=== PATIENT | female | born 1995 | race Caucasian/White ===

== ENCOUNTER 2022-10-28 15:33 | Emergency (ER) | payer MEDICAID ==
[~2022-10-28] VITALS: Ht 170.2 cm; Wt 79.5 kg
[2022-10-28 15:41] VITALS: TEMP 98.3
[2022-10-28] MEDS ORDERED: DOXYLAMINE SUCCINATE 25 MG TABLET PO ONE (16:00)
[2022-10-28] MEDS ORDERED: SODIUM CHLORIDE 0.9% 1,000 ML IV ONE (16:00)
[2022-10-28] MEDS ORDERED: PYRIDOXINE HCL 50 MG TABLET PO ONE (16:00)
[2022-10-28 16:15] LABS: BASOPHILS % (AUTO) 0.9 % (0.0-2.0); EOSINOPHILS % (AUTO) 1.3 % (1.0-6.0); HEMATOCRIT 37.4 % (36-46); HEMOGLOBIN 12.5 g/dL (12.0-16.0); LYMPHOCYTES # (AUTO) 1.2 K/uL (1.0-4.8); MEAN CORPUSCULAR HEMOGLOBIN 31.5 pg (26.0-34.0); MEAN CORPUSCULAR HGB CONC 33.5 G/dL (31.0-37.0); MEAN CORPUSCULAR VOLUME 94 fL (80-100); MONOCYTES # (AUTO) 0.5 K/uL (0.1-1.0); MONOCYTES % (AUTO) 7.3 % (2.0-9.0); NEUTROPHILS # (AUTO) 4.7 K/uL (1.8-7.7); NEUTROPHILS % (AUTO) 72.5 % (40.0-70.0); PLATELET COUNT (AUTO) 198 K/uL (150-450); RED BLOOD CELL COUNT(AUTO) 3.97 MIL/uL (4.00-5.20); RED CELL DISTRIBUTION WIDTH 13.1 % (11.5-14.5); WHITE BLOOD COUNT (AUTO) 6.5 K/uL (4.5-11.0)
[2022-10-28 16:27] LABS: ANION GAP 10 mmol/L (8-16); CALCIUM, TOTAL 8.1 mg/dL (8.8-10.5); CARBON DIOXIDE 23 mmol/L (22-29); CHLORIDE 103 mmol/L (98-107); CREATININE 0.36 mg/dL (0.60-1.30); GLOMERULAR FILTR. RATE CALC > 60 mL/min (>60); GLUCOSE,RANDOM 71 mg/dL (70-110); POTASSIUM 3.6 mmol/L (3.5-5.1); SODIUM SERUM 136 mmol/L (136-145); UREA NITROGEN, BLOOD 7 mg/dL (7-18)
[2022-10-28 16:31] LABS: ALANINE AMINOTRANSFERASE 15 U/L (12-78); ALBUMIN 2.7 g/dL (3.4-5.0); ALKALINE PHOSPHATASE 55 U/L (46-116); ASPARTATE AMINOTRANSFERASE 12 U/L (15-37); BILIRUBIN,TOTAL 0.5 mg/dL (0.1-1.0); LIPASE 20 U/L (16-77); TOTAL PROTEIN, SERUM 5.8 g/dL (6.4-8.2)
[2022-10-28 17:10] LABS: HCG,QUANTITATIVE 11402 mIU/mL (0-6)
[2022-10-28 18:15] LABS: APPEARANCE,URINE CLEAR (CLEAR); BILIRUBIN,URINE NEGATIVE (NEGATIVE); COLOR,URINE LIGHT YELLOW (YELLOW); GLUCOSE, URINE (UA) NEGATIVE (NEGATIVE); KETONES,URINE 80-100 mg/dL (NEGATIVE); LEUKOCYTE ESTERASE ,URINE NEGATIVE (NEGATIVE); NITRATE,URINE NEGATIVE (NEGATIVE); OCCULT BLOOD,URINE NEGATIVE (NEGATIVE); PH,URINE 6.5 (5.0-8.0); PROTEIN,URINE TRACE mg/dL (NEGATIVE); UROBILINOGEN,URINE <=1.0 mg/dL (<=1.0)
[2022-10-28] MEDS ORDERED: DOXY1TAB3 PO (18:22)
[2022-10-28 18:40] VITALS: BP 104/66; PULSE 87; RESP 18
== END 2022-10-28 18:55 | disposition home or self-care (01) ==
LOC: EMS 15:35
DX: O21.9 Vomiting of pregnancy, unspecified (principal); Z3A.25 25 weeks gestation of pregnancy
CPT/HCPCS: 80053; 81003; 83690; 84702; 85025; 96360; 99283; 36415-L1; 36415-TC

== ENCOUNTER 2023-07-15 09:34 | Emergency (ER) | payer MEDICAID ==
[~2023-07-15] VITALS: Ht 170.2 cm; Wt 91.0 kg
[~2023-07-15 09:34] MED LIST: DOXY1TAB3 PO
[2023-07-15 09:35] VITALS: BP 116/69; PULSE 87; RESP 16; TEMP 98.2
[2023-07-15 13:56] LABS: COVID AG,FIA SOURCE NASAL SWAB
[2023-07-15 14:18] LABS: SARS-COV2 (COVID) ANTIGEN,FIA Negative (Negative)
[2023-07-15 14:21] LABS: INFLUENZA TYPE A NEGATIVE FOR TYPE A (NEGATIVE); INFLUENZA TYPE B NEGATIVE FOR TYPE B (NEGATIVE)
[2023-07-15] MEDS ORDERED: AMOX500C2 PO (15:11)
== END 2023-07-15 16:00 | disposition home or self-care (01) ==
LOC: EMS 09:34
DX: J32.9 Chronic sinusitis, unspecified (principal); Z20.822 Contact with and (suspected) exposure to COVID-19
CPT/HCPCS: 71045; 87804; 99284

== ENCOUNTER 2023-10-19 09:43 | Inpatient (IN) | payer MEDICAID ==
[~2023-10-19] VITALS: Ht 171.4 cm; Wt 90.6 kg
[~2023-10-19 09:43] MED LIST changes: +AMOX500C2 PO
[2023-10-19 10:48] LABS: BASOPHILS % (AUTO) 1.1 % (0.0-2.0); EOSINOPHILS % (AUTO) 5.3 % (1.0-6.0); HEMATOCRIT 39.3 % (36-46); LYMPHOCYTES # (AUTO) 1.6 K/uL (1.0-4.8); LYMPHOCYTES % (AUTO) 34.5 % (22.0-44.0); MEAN CORPUSCULAR HEMOGLOBIN 29.8 pg (26.0-34.0); MEAN CORPUSCULAR HGB CONC 33.2 G/dL (31.0-37.0); MEAN CORPUSCULAR VOLUME 90 fL (80-100); MONOCYTES # (AUTO) 0.4 K/uL (0.1-1.0); MONOCYTES % (AUTO) 9.7 % (2.0-9.0); NEUTROPHILS # (AUTO) 2.3 K/uL (1.8-7.7); NEUTROPHILS % (AUTO) 49.4 % (40.0-70.0); PLATELET COUNT (AUTO) 227 K/uL (150-450); RED BLOOD CELL COUNT(AUTO) 4.38 MIL/uL (4.00-5.20); RED CELL DISTRIBUTION WIDTH 13.5 % (11.5-14.5); WHITE BLOOD COUNT (AUTO) 4.6 K/uL (4.5-11.0)
[2023-10-19 11:17] LABS: CHLORIDE 103 mmol/L (98-107)
[2023-10-19 11:26] LABS: ANION GAP 9 mmol/L (8-16); CALCIUM, TOTAL 8.1 mg/dL (8.8-10.5); CARBON DIOXIDE 25 mmol/L (22-29); CREATININE 0.78 mg/dL (0.60-1.30); GLOMERULAR FILTR. RATE CALC > 60 mL/min (>60); GLUCOSE,RANDOM 88 mg/dL (70-110); POTASSIUM 3.8 mmol/L (3.5-5.1); SODIUM SERUM 137 mmol/L (136-145); UREA NITROGEN, BLOOD 16 mg/dL (7-18)
[2023-10-19 11:27] LABS: ALCOHOL, BLOOD (SERUM) < 3 mg/dL (0-10)
[2023-10-19 11:32] LABS: COVID AG,FIA SOURCE NASAL SWAB
[2023-10-19 11:57] LABS: SARS-COV2 (COVID) ANTIGEN,FIA Negative (Negative)
[2023-10-19 12:01] LABS: PH,URINE DRUG SCREEN 5.5 (5.0-8.0)
[2023-10-19 12:10] LABS: ALCOHOL, URINE DRUG SCREEN NEGATIVE (NEGATIVE); AMPHET/METH SCREEN,URINE NEGATIVE (NEGATIVE); BARBITURATE SCREEN, URINE NEGATIVE (NEGATIVE); BENZODIAZEPINES SCREEN,URINE NEGATIVE (NEGATIVE); CANNABINOID SCREEN,URINE NEGATIVE (NEGATIVE); COCAINE SCREEN,URINE NEGATIVE (NEGATIVE); METHADONE SCREEN, URINE NEGATIVE (NEGATIVE); OPIATE SCREEN,URINE NEGATIVE (NEGATIVE); PHENCYCLIDINE SCREEN,URINE NEGATIVE (NEGATIVE)
[2023-10-19] MEDS ORDERED: HALOPERIDOL 5 MG TABLET PO PRN (14:15)
[2023-10-19] MEDS ORDERED: LORazepam 2 MG TABLET PO PRN (14:15)
[2023-10-19 15:42] VITALS: O2SAT 99
[2023-10-19 18:57] VITALS: BP 132/77; PULSE 84; RESP 16; TEMP 98; O2SAT 97
[2023-10-19 21:02] VITALS: BP 132/76; PULSE 80; RESP 16; TEMP 97.5; O2SAT 99
[2023-10-19] MEDS: ZOLPIDEM TARTRATE 10 MG TABLET PO PRN (21:23)
[2023-10-20 08:50] VITALS: BP 106/67; PULSE 84; RESP 18; TEMP 97.6; O2SAT 96
[2023-10-20] MEDS ORDERED: ALBUTEROL SULFATE HFA 90 MCG/PUFF 8 GM INHALER IH PRN (14:00)
[2023-10-20] MEDS ORDERED: NICOTINE 14 MG/24 HOUR PATCH TD PRN (14:00)
[2023-10-20] MEDS ORDERED: ACETAMINOPHEN 325 MG TABLET PO PRN (14:00)
[2023-10-20] MEDS ORDERED: DOCUSATE SODIUM 100 MG CAPSULE PO PRN (14:00)
[2023-10-20] MEDS ORDERED: CloNIDine HCL 0.1 MG TABLET PO PRN (14:00)
[2023-10-20] MEDS ORDERED: MAG HYDROX/ALUMINUM HYD/SIMETH ES 30 ML SUSPENSION UDCUP PO PRN (14:00)
[2023-10-20] MEDS ORDERED: ONDANSETRON HCL 4 MG TABLET PO PRN (14:00)
[2023-10-20] MEDS ORDERED: LOPERAMIDE HCL 2 MG CAPSULE PO PRN (14:00)
[2023-10-20] MEDS ORDERED: IBUPROFEN 400 MG TABLET PO PRN (14:00)
[2023-10-20] MEDS ORDERED: GuaiFENesin/D-METHORPHAN [SUGAR-FREE] 200-20MG/10 ML SYRUP UDCUP PO PRN (14:00)
[2023-10-20] MEDS ORDERED: PETROLATUM,WHITE 28 GM JELLY TP PRN (14:00)
[2023-10-20] MEDS: TraZODone HCL 50 MG TABLET PO SCH (20:31)
[2023-10-20 20:39] VITALS: BP 125/70; PULSE 73; RESP 16; TEMP 97.2; O2SAT 97
[2023-10-21 08:20] VITALS: BP 107/67; PULSE 88; RESP 16; TEMP 97.5; O2SAT 96
[2023-10-21] MEDS: DiphenhydrAMINE HCL 25 MG CAPSULE PO PRN (09:29)
[2023-10-21] MEDS: MAGNESIUM HYDROXIDE SUSPENSION 30 ML UDCUP PO PRN (17:29)
[2023-10-21 20:36] VITALS: BP 102/65; PULSE 85; RESP 19; TEMP 97.7; O2SAT 98
[2023-10-22 08:24] VITALS: BP 125/63; PULSE 88; RESP 17; TEMP 97.6; O2SAT 97
[2023-10-22 09:32] LABS: CHOL/HDL RATIO 3.2 (3.9-5.7); THYROID STIMULATING HORMONE 1.11 uIU/mL (0.36-3.74)
[2023-10-22 09:44] LABS: HEMOGLOBIN A1C 5.4 % (3.8-5.6)
[2023-10-22] MEDS ORDERED: TRAZ-252 PO ×2 (15:23→16:11)
== END 2023-10-22 16:11 | disposition home or self-care (01) | DRG 751 ==
LOC: EMS 09:43 → B2S 16:39
PROVIDERS: ADMIT Psychiatry & Neurology Psychiatry; ATTEND Psychiatry & Neurology Psychiatry
PROC: GZHZZZZ Group Psychotherapy (ICD-10-PCS; principal; 2023-10-20)
PROC: GZ51ZZZ Individual Psychotherapy, Behavioral (ICD-10-PCS; 2023-10-20)
DX: F33.2 Major depressive disorder, recurrent severe without psychotic features (principal); R45.851 Suicidal ideations; F90.9 Attention-deficit hyperactivity disorder, unspecified type; F10.21 Alcohol dependence, in remission; F84.0 Autistic disorder; F41.9 Anxiety disorder, unspecified; Z20.822 Contact with and (suspected) exposure to COVID-19; G47.00 Insomnia, unspecified; K59.00 Constipation, unspecified; Z79.899 Other long term (current) drug therapy; Z91.51 Personal history of suicidal behavior
CPT/HCPCS: 80048; 80061; 80307; 83036; 84443; 84703; 85025; 99285; G0480